=== PATIENT | female | born 1980 | race Caucasian/White ===

== ENCOUNTER 2016-08-07 16:03 | Emergency (ER) | payer OTHER ==
[~2016-08-07 16:03] MED LIST: KLOR20TA6 PO; MAXZ PO; OXYC-360 PO
[2016-08-07 16:05] VITALS: BP 178/108; PULSE 118; RESP 28; TEMP 97.7; O2SAT 98
[2016-08-07] MEDS ORDERED: IBUPROFEN 800 MG TAB PO ONE (16:45)
--- NOTE | 2016-08-07 16:45 | PD ---
HPI Chief Complaint: Injury Time Seen by Provider: 16:43 Travel History International Travel<30 days: No Contact w/Intl Traveler<30days: No Traveled to known affect area: No History of Present Illness HPI 35-year-old female presents to the emergency department for evaluation of left third finger injury that occurred just prior to arrival. She states she slammed the distal aspect of the finger in a car door. She reports localized pain and numbness. Patient states her tetanus immunization is up-to-date. She has no chronic medical problems and takes no medications. She denies any chance of . No other complaints. PFSH Past Medical History Cardiovascular Problems: Yes (LOWER EXT EDEMA) Hypertension: Yes Menopausal: No : 3 Para: 2 Past Surgical History Pacemaker: No Tonsillectomy: Yes Other Surgery: Yes (T&A CHILD) Social History Alcohol Use: Yes (OCCASIONAL PER PT) Tobacco Use: No Substance Use: No Allergies-Medications (Allergen,Severity, Reaction): Coded Allergies: No Known Allergies (Verified , 08/07/16) Reported Meds & Prescriptions Reported Meds & Active Scripts Active Review of Systems Except as stated in HPI: all other systems reviewed are Neg Physical Exam Narrative GENERAL: Well-developed well-nourished female patient, Ambulatory. Afebrile. SKIN: Warm and dry. Small hematoma noted to the volar aspect of the distal left third finger. No abrasions or lacerations. HEAD: Normocephalic. Atraumatic. EYES: No scleral icterus. No injection or drainage. NECK: Supple, trachea midline. No JVD or lymphadenopathy. CARDIOVASCULAR: Regular rate and rhythm without murmurs, gallops, or rubs. RESPIRATORY: Breath sounds equal bilaterally. No accessory muscle use. Lungs sounds are clear to auscultation. GASTROINTESTINAL: Abdomen soft, non-tender, nondistended. MUSCULOSKELETAL: No cyanosis, or edema. Patient has full flexion-extension of all digits of the left hand. However, she has tenderness with the DIP joint of the left third finger. She has full sensation distal left third finger. Left radial pulse is 2+. Data Data Last Documented VS Vital Signs Date Time Temp Pulse Resp B/P Pulse Ox O2 Delivery O2 Flow Rate FiO2 08/07/16 17:01 87 16 Room Air 08/07/16 16:05 97.7 178/108 98 Orders Finger (Odl2jmv) (08/07/16 ) Ibuprofen (Motrin) (08/07/16 16:45) MDM Medical Decision Making Medical Screen Exam Complete: Yes Emergency Medical Condition: Yes Medical Record Reviewed: Yes Interpretation(s) Last Impressions Finger X-Ray 08/07/16 0000 Signed Impressions: Service Date/Time: Sunday, August 07, 2016 16:44 - CONCLUSION: Unremarkable examination of the left third finger. Fortino Fischer MD Differential Diagnosis Contusion versus fracture versus dislocation Narrative Course 35-year-old female presents to the emergency department for evaluation of left third finger injury that occurred just prior to arrival. Patient is given ibuprofen 800 mg by mouth. X-ray of the left third finger is ordered and pending. X-ray of the left third finger is unremarkable. Patient will be discharged with a prescription for ibuprofen. She is instructed ice. She is agreeable. Diagnosis Primary Impression: Fingertip contusion Qualified Code: S60.00XA - Fingertip contusion, initial encounter Referrals: Primary Care Physician call for appointment Patient Instructions: Contusion in Adults (ED), General Instructions Additional Instructions: Ice for 20 minutes 4-5 times daily. Take ibuprofen as directed as needed with food for pain. Follow-up with your primary care physician. Return to the emergency department for any acute worsening of symptoms. Med/Other Pt SpecificInfo: Prescription(s) given Scripts Ibuprofen 800 Mg Eoo114 Mg PO TID PRN (PAIN SCALE 1 TO 10) #21 TAB Ref 0 Prov:KevonCecile FOLEY 08/07/16 Disposition: 01 DISCHARGE HOME Condition: Stable Cecile Lund Aug 07, 2016 16:45
[2016-08-07 17:01] VITALS: PULSE 87; RESP 16
--- NOTE | 2016-08-07 17:18 | RADRPT ---
EXAM DATE/TIME: 08/07/2016 16:44 [facility] COMPARISON: No previous studies available for comparison. INDICATIONS : Slammed 3rd left digit in car door. MEDICAL HISTORY : None. SURGICAL HISTORY : None. ENCOUNTER: Initial ACUITY: 1 day PAIN SCORE: 10/10 LOCATION: Left distal 3rd digit FINDINGS: Examination of the third digit of the left hand demonstrates no evidence of fracture or dislocation. No radiopaque foreign bodies are seen. The soft tissues are intact. CONCLUSION: Unremarkable examination of the left third finger. Fortino Fischer MD on August 07, 2016 at 17:15 Board Certified Radiologist. This report was verified electronically.
[2016-08-07] MEDS ORDERED: IBUP800T23 PO (17:38)
== END 2016-08-07 17:52 | disposition home or self-care (01) ==
LOC: NEPB 16:03
DX: S60.032A Contusion of left middle finger without damage to nail, initial encounter (principal); I10 Essential (primary) hypertension; Z86.79 Personal history of other diseases of the circulatory system; W23.1XXA Caught, crushed, jammed, or pinched between stationary objects, initial encounter
CPT/HCPCS: 73140; 99283